=== PATIENT | male | born 1970 | race Caucasian/White ===

== ENCOUNTER 2016-10-21 01:36 | Emergency (ER) | payer MEDICARE ==
[2016-10-21 02:11] LABS: HEMOGLOBIN 14.2 gm/dl (14.0-17.5); RED BLOOD COUNT 4.94 M/UL (4.20-5.50); WHITE BLOOD COUNT 12.1 K/UL (4.5-11.0)
[2016-10-21 02:34] LABS: BUN/CREATININE RATIO 13 (0-10)
== END 2016-10-21 05:30 | disposition left against medical advice (07) ==
LOC: ER1 01:36
PROVIDERS: Emergency Medicine
DX: S01.01XA Laceration without foreign body of scalp, initial encounter (principal); S01.412A Laceration without foreign body of left cheek and temporomandibular area, initial encounter; S20.219A Contusion of unspecified front wall of thorax, initial encounter; Y04.2XXA Assault by strike against or bumped into by another person, initial encounter; Y92.009 Unspecified place in unspecified non-institutional (private) residence as the place of occurrence of the external cause
CPT/HCPCS: 12001; 36415; 70450; 70486; 71010; 71260; 72125; 72128; 72131; 80053; 82550; 82553; 83874; 84484; 85025; 85610; 85730; 99284; G0480; J7050; Q9962

== ENCOUNTER 2020-08-26 02:36 | Inpatient (IN) | payer OTHER ==
[~2020-08-26] VITALS: Ht 172.7 cm; Wt 83.5 kg
[~2020-08-26 02:36] MED LIST: BUPRENORPHIN-N1 EACH SL; NAPROSYN EC 37375 MG PO
[2020-08-26 03:07] LABS: HEMOGLOBIN 14.7 gm/dl (14.0-17.5); RED BLOOD COUNT 4.76 M/UL (4.20-5.50); WHITE BLOOD COUNT 10.8 K/UL (4.5-11.0)
[2020-08-26 03:48] LABS: BUN/CREATININE RATIO 12 (0-10)
[2020-08-26] MEDS ORDERED: ATORVASTATIN CA80 MG PO (09:42)
[2020-08-26] MEDS ORDERED: GABAPENTIN600 MG PO (10:00)
[2020-08-26] MEDS ORDERED: AUGMENTIN 875-1 EACH PO (16:04)
[2020-08-27 03:17] LABS: HEMOGLOBIN 14.2 gm/dl (14.0-17.5); RED BLOOD COUNT 4.59 M/UL (4.20-5.50)
[2020-08-27 03:43] LABS: BUN/CREATININE RATIO 14 (0-10)
--- NOTE | 2020-08-28 08:09 | NUR ---
"OFFICE IS HERE TO TAKE PT AT THIS TIME NOTED , CM IS TRYING TO FIND THE ONE PAPER THAT ALLOWS THE OFFICER TO PICK HIM UP , 1|1 SITTER WITH PT NOTED AT THIS TIME"
--- NOTE | 2020-08-28 09:20 | NUR ---
PT ASSISTED TO W/C FOR OFFICER TO LEAVE AT THIS TIME NOTED PT ASKING OUT HIS PROSTHETIC LEG AND WALLET NO BELONGINGS TAG IN CHART , ALSO CALLED PCU TO SEE IF ANYTING WAS LEFT UP THERE , JOSE GUADALUPE STATED NOTHING TO THERE KNOWLEDGE, NARDA CALIX ASSISTED OFFICER TO HIS CAR [place]
== END 2020-08-28 09:20 | disposition other institution (70) | DRG 917 ==
LOC: ER1 02:36 → PROG CARE 04:33 → CDU 04:33 → PROG CARE 06:13 → MED SURG 4 06:25 → PROG CARE 23:23 → MED SURG 4 08-27 19:48
PROVIDERS: Emergency Medicine; ADMIT Internal Medicine
DX: T43.621A Poisoning by amphetamines, accidental (unintentional), initial encounter (principal); G92 Toxic encephalopathy; J69.0 Pneumonitis due to inhalation of food and vomit; Z20.822 Contact with and (suspected) exposure to COVID-19; J96.01 Acute respiratory failure with hypoxia; T42.4X1A Poisoning by benzodiazepines, accidental (unintentional), initial encounter; T40.7X1A Poisoning by cannabis (derivatives), accidental (unintentional), initial encounter; F12.10 Cannabis abuse, uncomplicated; F15.10 Other stimulant abuse, uncomplicated; F19.10 Other psychoactive substance abuse, uncomplicated; F17.200 Nicotine dependence, unspecified, uncomplicated; R74.01 Elevation of levels of liver transaminase levels; I73.9 Peripheral vascular disease, unspecified; B18.2 Chronic viral hepatitis C; G89.4 Chronic pain syndrome; I25.10 Atherosclerotic heart disease of native coronary artery without angina pectoris; Z95.5 Presence of coronary angioplasty implant and graft; Z90.81 Acquired absence of spleen; Z89.512 Acquired absence of left leg below knee; Z87.81 Personal history of (healed) traumatic fracture; Z83.3 Family history of diabetes mellitus; Z79.899 Other long term (current) drug therapy
CPT/HCPCS: 36415; 70450; 71045; 80053; 80307; 81001; 82550; 82553; 83605; 83690; 83735; 83874; 83880; 84100; 84484; 85025; 85610; 85730; 87040; 93005; 99285; C9113; G0480; J0696; J1650; J2060; J7030; U0002

== ENCOUNTER 2020-09-19 14:06 | Emergency (ER) | payer OTHER ==
[~2020-09-19 14:06] MED LIST changes: +ATORVASTATIN CA80 MG PO; +AUGMENTIN 875-1 EACH PO; +GABAPENTIN600 MG PO
[2020-09-19] MEDS ORDERED: TORADOL 10 MG T10 MG PO (17:53)
== END 2020-09-19 18:11 | disposition home or self-care (01) ==
LOC: ER1 14:06
DX: S52.501A Unspecified fracture of the lower end of right radius, initial encounter for closed fracture (principal); S52.601A Unspecified fracture of lower end of right ulna, initial encounter for closed fracture; W19.XXXA Unspecified fall, initial encounter; Y92.009 Unspecified place in unspecified non-institutional (private) residence as the place of occurrence of the external cause
CPT/HCPCS: 73090; 73110; 96374; 99283; J1885